=== PATIENT | female | born 1945 | race Caucasian/White ===

== ENCOUNTER 2016-07-13 11:31 | Outpatient (CLI) | payer MEDICARE, BC | END 2016-07-13 11:32 | disposition home or self-care (01) | DX: Z01.818 Encounter for other preprocedural examination (principal); C54.1 Malignant neoplasm of endometrium ==

== ENCOUNTER 2016-07-13 11:47 | Outpatient (CLI) | payer MEDICARE, BC | END 2016-07-13 11:48 | disposition home or self-care (01) | DX: Z01.818 Encounter for other preprocedural examination (principal); C54.1 Malignant neoplasm of endometrium ==

== ENCOUNTER 2017-08-27 08:33 | Emergency (ER) | payer MEDICARE, BC ==
[2017-08-27 08:47] VITALS: BP 173/89
--- NOTE | 2017-08-27 09:50 | ED Physician Documentation ---
PD HPI SKIN - Stated complaint Stated Complaint: ITCHY SPOTS - Chief complaint Chief Complaint: Heent - History obtained from History obtained from: Patient - History of Present Illness Timing - onset: How many days ago (3) Timing - duration: Days (3) Timing - details: Gradual onset, Still present Location: Bodywide Quality / character: Itchy, Discolored, Raised, Crusted Improved by: Benadryl Contributing factors: Other (lots of stress with a move and health issues.) Similar symptoms before: Diagnosis (impetigo) Recently seen: Not recently seen - Additional information Additional information: 72-year-old female with a history of hypertension has developed a rash on her body around her ankles and over her back and trunk and this is developed some significant itching with swelling and crusting of the areas as well. She has had something like this similar back in 2013. This was thought at that time to be related to an exercise mat that she was using and she continues to go to the [employer] and is worried about their metastases there. She indicates that she had good relief of her symptoms with the treatment given previously. 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 08/27/17 - Allergies Allergies/Adverse Reactions: Allergies Allergy/AdvReac Type Severity Reaction Status Date / Time No Known Drug Allergies Allergy Verified 08/27/17 08:47 - Social History Does the pt smoke?: No Smoking Status: Never smoker Does the pt drink ETOH?: Yes Does the pt have substance abuse?: No - Immunizations Immunizations are current?: Yes PD ED PE NORMAL - Vitals Vital signs reviewed: Yes (hypertensive ) - General General: Alert and oriented X 3, No acute distress, Well developed/nourished - HEENT HEENT: Atraumatic, PERRL, EOMI - Neck Neck: Supple, no meningeal sign - Respiratory Respiratory: No respiratory distress - Derm Derm: Normal color, Warm and dry, Other (There are multiple areas of plaque like pustules with honey crusting over the lower back and lower abdomen as well as the lower extremities. There is some additional more diffuse areas over the upper back and the back of the neck.) - Extremities Extremities: No deformity, No edema - Neuro Neuro: No motor deficit, No sensory deficit Eye Opening: Spontaneous Motor: Obeys Commands Verbal: Oriented GCS Score: 15 - Psych Psych: Normal mood, Normal affect Results - Vitals Vitals: Vital Signs - 24 hr 08/27/17 08:45 Heart Rate 69 Respiratory 18 Rate Blood Pressure 173/89 H O2 Saturation 100 Oxygen O2 Source Room air PD MEDICAL DECISION MAKING - ED course Complexity details: reviewed old records, considered differential, d/w patient ED course: 72-year-old female with a rash for the last 3 days this progressed and is spreading appears to have impetigo on examination. She has had previous good result with the prior treatment and we will treat her again. Departure - Departure Disposition: 01 Home, Self Care Clinical Impression: Impetigo Condition: Stable Instructions: Impetigo Follow-Up: Nilsa Bradley ARNP [Primary Care Provider] - Prescriptions: Azithromycin [Zithromax] 250 mg PO DAILY #6 tablet Mupirocin Calcium [Bactroban] 1 gm TP BID #30 cream..g.
== END 2017-08-27 10:02 | disposition home or self-care (01) ==
LOC: ED 08:33
DX: L01.00 Impetigo, unspecified (principal); I10 Essential (primary) hypertension
CPT/HCPCS: 99283

== ENCOUNTER 2020-02-16 11:42 | Outpatient (CLI) | payer MEDICARE, BC ==
[2020-02-16] MEDS ORDERED: IOVERSOL 320 100 ML VIAL IVP ONE ×2 (12:03→13:11)
[2020-02-16] MEDS ORDERED: IOVERSOL 320 50 ML VIAL ONE (12:03)
[2020-02-16 12:47] LABS: CREATININE 0.9 mg/dL (0.4-1.0)
[2020-02-16] MEDS ORDERED: IOVERSOL 320 50 ML VIAL PO ONE (13:12)
--- NOTE | 2020-02-16 15:44 | CT Report ---
PROCEDURE: Abdomen/Pelvis W INDICATIONS: RLQ ABD PAIN CONTRAST: IV CONTRAST: Optiray 320 ml: 100 PO CONTRAST: Optiray 320 ml50 TECHNIQUE: After the administration of intravenous contrast, 5 mm thick sections acquired from the diaphragms to the symphysis. 5 mm thick coronal and sagittal reformats were acquired. For radiation dose reducti on, the following was used: automated exposure control, adjustment of mA and/or kV according to chika ent size. COMPARISON: None. FINDINGS: Image quality: Excellent. ABDOMEN: Lung bases: Lung bases are clear. Heart size is normal. Solid organs: Liver and spleen are normal in size and enhancement. Gallbladder is unremarkable Kirby iary system is non dilated. Pancreas enhances normally. No adrenal nodules. Kidneys demonstrate no rmal size and enhancement, without hydronephrosis. Low-density cystic lesions are present bilaterall y within the kidneys. Peritoneum and bowel: Bowel loops demonstrate normal wall thickness and caliber. The appendix is thi n-walled and gas-filled. No free fluid or air. Nodes and vessels: No retroperitoneal or mesenteric adenopathy by size criteria. Aorta and inferior vena cava are normal in size. Scattered atheromatous calcifications are present throughout the abdo cierra aorta. Miscellaneous: No ventral hernias. PELVIS: Genitourinary: Bladder wall thickness is normal. Miscellaneous: No inguinal hernias or adenopathy. Bones: No suspicious bony lesions. No vertebral body compression fractures. IMPRESSION: 1. No acute intra-abdominal findings. Normal appendix. 2. Bilateral renal cysts. 3. Aortic atherosclerosis. Reviewed by: Malka Toro MD on 02/16/2020 3:43 PM PDT Approved by: Malka Toro MD on 02/16/2020 3:43 PM PDT Station ID: [id number]
== END 2020-02-16 11:43 | disposition home or self-care (01) ==
LOC: LAB 11:42
PROVIDERS: ATTEND Neurological Surgery
DX: R10.31 Right lower quadrant pain (principal); N28.1 Cyst of kidney, acquired; I70.0 Atherosclerosis of aorta
CPT/HCPCS: 36415; 74177; 82565; Q9967

== ENCOUNTER 2021-05-27 10:40 | Outpatient (CLI) | payer MEDICARE, BC ==
[2021-05-27 10:50] LABS: BASOPHILS % (AUTO) 0.8 %; EOSINOPHILS # (AUTO) 0.1 10^3/uL (0.0-0.7); EOSINOPHILS % (AUTO) 1.6 %; HCT - HEMATOCRIT 41.7 % (37.0-47.0); HGB - HEMOGLOBIN 13.9 g/dL (12.0-16.0); LYMPHOCYTES # (AUTO) 1.4 10^3/uL (1.5-3.5); LYMPHOCYTES % (AUTO) 28.1 %; MEAN CORPUSCULAR HEMOGLOBIN 32.2 pg (27.0-31.0); MEAN CORPUSCULAR HGB CONC 33.3 g/dL (32.0-36.0); MEAN CORPUSCULAR VOLUME 96.5 fL (81.0-99.0); MEAN PLATELET VOLUME 9.2 fL (7.9-10.8); MONOCYTES # (AUTO) 0.5 10^3/uL (0.0-1.0); MONOCYTES % (AUTO) 9.9 %; NEUTROPHILS # (AUTO) 2.9 10^3/uL (1.5-6.6); NEUTROPHILS % (AUTO) 59.4 %; PLT - PLATELET COUNT 268 10^3/uL (130-450); RED BLOOD COUNT 4.32 10^6/uL (4.20-5.40); RED CELL DISTRIBUTION WIDTH 13.6 % (12.0-15.0); WHITE BLOOD COUNT 4.9 x10^3/uL (4.8-10.8)
[2021-05-27] MEDS ORDERED: IOVERSOL 320 100 ML VIAL IVP ONE ×2 (11:09→13:23)
[2021-05-27] MEDS ORDERED: IOPAMIDOL-300 50 ML VIAL ONE (11:09)
[2021-05-27 11:10] LABS: CREATININE 0.7 mg/dL (0.4-1.0); GFR - MDRD 82 (>89)
[2021-05-27 11:11] LABS: CRP - C-REACTIVE PROTEIN < 1.0 mg/dL (0-1.0)
[2021-05-27] MEDS ORDERED: IOPAMIDOL-300 50 ML VIAL PO ONE (13:23)
--- NOTE | 2021-05-27 16:58 | CT Report ---
PROCEDURE: CHEST W INDICATIONS: ENDOMETRIAL CA CONTRAST: IV CONTRAST: Optiray 320 ml: 100 PO CONTRAST: Isovue 300 ml50 TECHNIQUE: After the administration of intravenous contrast, 1 mm axial images were acquired from the pulmonary apices through the posterior costophrenic angles. Axial 5 mm soft tissue kernel reconstructions were performed as well as 8 mm axial MIP and coronal and sagittal 5 mm reformations. For radiation dose reduction, the following was used: automated exposure control, adjustment of mA and/or kV according to patient size. COMPARISON: February 16, 2020. FINDINGS: CT CHEST: Thyroid: Homogeneous. Vasculature: The thoracic aorta and arch vasculature have a normal contrasted appearance and are norm al size and contour. No evidence for dissection. Heart: No cardiomegaly or significant pericardial effusion. Mediastinum: No pathologic lymph node enlargement by size criteria. Lung/pleura: Biapical pleural thickening/scarring. No pleural effusion, consolidation, or pneumothora x. Tracheobronchial tree: Patent. Bones: No significant abnormality. A 1 cm lucency is again seen in the right T11 pedicle, favored to represent a hemangioma. Chest wall: The chest wall and axilla are within normal limits. IMPRESSION: 1.No significant abnormality. Reviewed by: Shane Colorado MD on 05/27/2021 4:57 PM PST Approved by: Shane Colorado MD on 05/27/2021 4:57 PM PST Station ID: [id number]
--- NOTE | 2021-05-27 17:06 | CT Report ---
PROCEDURE: Abdomen/Pelvis W INDICATIONS: ENDOMETRIAL CA CONTRAST: IV CONTRAST: Optiray 320 ml: 100 PO CONTRAST: Isovue 300 ml50 TECHNIQUE: After the administration of oral and intravenous contrast, 5 mm thick sections acquired from the diap hragms to the symphysis. 5 mm thick coronal and sagittal reformats were acquired. For radiation dos e reduction, the following was used: automated exposure control, adjustment of mA and/or kV accordin g to patient size. COMPARISON: February 16, 2020. FINDINGS: Gallbladder: The gallbladder is distended with a smooth thin wall. Biliary tree: Minimal intrahepatic biliary duct dilatation. Liver: The liver demonstrates size and contour. Redemonstrated 1 cm, faint contrast enhancing lesion in the right hepatic lobe (CT chest series: 2-52), best appreciated on the arterial phase. Spleen: Normal enhancement, size and morphology is seen. Pancreas: No contour deforming mass or inflammatory change. Adrenals: Normal size without masses. Kidneys/ureters: Normal size and morphology. No solid masses or hydronephrosis. Bilateral cortical an d parapelvic hypoattenuating lesions are seen, most consistent with cysts. Vasculature: No evidence of aneurysm or other significant vascular pathology. Lymphatic system: No pathologic enlargement by size criteria. GI/mesentery: No evidence of intestinal obstruction. Normal appearance of the appendix. Peritoneum/Retroperitoneum: No free intraperitoneal gas or large collection. Urinary bladder: The urinary bladder is distended with a smooth thin wall. Pelvic organs: No significant abnormality. Bones/soft tissues: Multifocal degenerative change. Slightly diffuse increased lucency of the L5 vert ebral body with preservation of the cortex. IMPRESSION: 1.No significant interval change. 2.1 cm contrast enhancing lesion in the right hepatic lobe, which is incompletely characterized. Cons ider MR for further characterization. 3.Slight diffuse increased lucency of the L5 vertebral body, which is nonspecific but may reflect pos t radiation change. Reviewed by: Shane Colorado MD on 05/27/2021 5:05 PM PST Approved by: Shane Colorado MD on 05/27/2021 5:05 PM PST Station ID: [id number]
== END 2021-05-27 10:41 | disposition home or self-care (01) ==
LOC: LAB 10:40
PROVIDERS: ATTEND Internal Medicine
DX: C55 Malignant neoplasm of uterus, part unspecified (principal); R51.9 Headache, unspecified; R93.2 Abnormal findings on diagnostic imaging of liver and biliary tract; R93.7 Abnormal findings on diagnostic imaging of other parts of musculoskeletal system
CPT/HCPCS: 36415; 71260; 74177; 82565; 85025; 85651; 86140; Q9967

== ENCOUNTER 2022-01-25 10:33 | Outpatient (CLI) | payer MEDICARE, BC ==
[2022-01-25] MEDS ORDERED: DIATRIZOATE MEGLU/DIATRIZO SOD 30 ML BOTTLE PO ONE ×2 (10:52→18:18)
[2022-01-25 11:01] LABS: CREATININE 0.6 mg/dL (0.4-1.0)
--- NOTE | 2022-01-25 21:37 | CT Report ---
PROCEDURE: CHEST W INDICATIONS: HX OF ENDOMETRIAL CA, CHRONIC RUQ PAIN CONTRAST: IV CONTRAST: Optiray 320 ml: 100 PO CONTRAST: Optiray 320 ml50 TECHNIQUE: After the administration of intravenous contrast, 1 mm axial images were acquired from the pulmonary apices through the posterior costophrenic angles. Axial 5 mm soft tissue kernel reconstructions were performed as well as 8 mm axial MIP and coronal and sagittal 5 mm reformations. For radiation dose reduction, the following was used: automated exposure control, adjustment of mA and/or kV according to patient size. COMPARISON: 05/27/2021. FINDINGS: Image quality: Excellent. Lungs and pleura: Biapical scarring is seen. Scattered atelectasis in periphery of bilateral lung fi elds are seen. No suspicious pulmonary nodule or mass. No acute air space opacities. No pleural effu sions or pneumothorax. Central and peripheral airways are patent and normal in caliber. Mediastinum: Heart size is normal. No pericardial effusion. No mediastinal or hilar adenopathy by size criteria. Thoracic aorta and central pulmonary arteries are normal in size. Esophagus is tessa l in caliber. No hiatal hernia. Bones and chest wall: No suspicious bony lesions. Benign-appearing radiolucent area involving right T11 pedicle is again seen and unchanged and is most consistent with benign hemangioma. No vertebral body compression fractures. No axillary or supraclavicular adenopathy by size criteria. The thyroid is normal in size and there are no incidental findings.. Abdomen: Visualized upper abdominal solid organs appear normal. Upper abdominal bowel loops are nor mal in caliber. Bilateral renal cysts are seen. IMPRESSION: 1. No evidence of metastatic disease in the chest. 2. Scattered atelectasis in bilateral lung m[place]ur and biapical scarring. No suspicious pulmonary nodu le, focal infiltrate, pleural effusion or pneumothorax. 3. No mediastinal or hilar lymphadenopathy. CLINICAL RECOMMENDATION STATEMENTS: In patients <35 years with an ITN detected on CT, MRI, or extrathyroidal ultrasound, the Committee re commends further evaluation with dedicated thyroid ultrasound if the nodule is "e1 cm and has no susp icious imaging features, and if the patient has normal life expectancy. In patients "e35 years with an ITN detected on CT, MRI, or extrathyroidal ultrasound, the Committee r ecommends further evaluation with dedicated thyroid ultrasound if the nodule is "e1.5 cm and has no s uspicious imaging features, and if the patient has normal life expectancy. (ACR, 2014) Reviewed by: Jenaro Malhotra MD on 01/25/2022 9:36 PM PDT Approved by: Jenaro Malhotra MD on 01/25/2022 9:36 PM PDT Station ID: [id number]
--- NOTE | 2022-01-25 22:10 | CT Report ---
PROCEDURE: Abdomen/Pelvis W INDICATIONS: HX OF ENDOMETRIAL CA, CHRONIC RUQ PAIN CONTRAST: IV CONTRAST: Optiray 320 ml: 100 PO CONTRAST: Optiray 320 ml50 TECHNIQUE: After the administration of IV and oral contrast, 5 mm thick sections acquired from the diaphragms to the symphysis. 5 mm thick coronal and sagittal reformats were acquired. For radiation dose reducti on, the following was used: automated exposure control, adjustment of mA and/or kV according to chika ent size. COMPARISON: 05/27/2021, 02/16/2020, CT of the chest on 01/25/2022 FINDINGS: Image quality: Excellent. ABDOMEN: Lung bases: Lung bases are clear. Heart size is normal. Solid organs: Liver and spleen are normal in size. Previous CT chest finding of focal 1 cm area of h yperenhancement involving anterior right hepatic dome is again seen series 3 image 11 unchanged from prior study. No discrete splenic lesion is seen. Gallbladder is within normal limits. Biliary system is non dilated. Pancreas enhances normally. No adrenal nodules. Kidneys demonstrate normal size a nd enhancement, without hydronephrosis. Bilateral renal cysts are again seen unchanged in size and a ppearance from prior study. Peritoneum and bowel: Bowel loops demonstrate normal wall thickness and caliber. No free fluid or a ir. Nodes and vessels: No retroperitoneal or mesenteric adenopathy by size criteria. Aorta and inferior vena cava are normal in size. Miscellaneous: No ventral hernias. PELVIS: Genitourinary: Bladder wall thickness is normal. Miscellaneous: No inguinal hernias or adenopathy. Bones: No suspicious bony lesions. Increased radiolucency and L5 vertebral body and bony pelvis is seen with preservation of the cortex. No vertebral body compression fractures. IMPRESSION: 1. No significant changes from 05/27/2021 study. 2. Stable 1 cm hypodense structure in right hepatic dome unchanged from prior study. Metastatic liver lesion cannot be excluded. Consider MRI of abdomen for further evaluation. 3. No abdominal or pelvic lymphadenopathy. 4. Increased radiolucency in bony pelvis and L5 vertebral body which may represent postradiation lamas ges versus areas of osteopenia. No pathologic fracture. No other suspicious bony lesion. Reviewed by: Jenaro Malhotra MD on 01/25/2022 10:09 PM PDT Approved by: Jenaro Malhotra MD on 01/25/2022 10:09 PM PDT Station ID: [id number]
== END 2022-01-25 10:34 | disposition home or self-care (01) ==
LOC: LAB 10:33
PROVIDERS: ATTEND Physician Assistant Medical
DX: R10.11 Right upper quadrant pain (principal); G89.29 Other chronic pain; J98.11 Atelectasis; R93.2 Abnormal findings on diagnostic imaging of liver and biliary tract; R93.7 Abnormal findings on diagnostic imaging of other parts of musculoskeletal system; Z85.42 Personal history of malignant neoplasm of other parts of uterus
CPT/HCPCS: 36415; 71260; 74177; 82565; Q9963; Q9967

== ENCOUNTER 2022-12-14 14:09 | Emergency (ER) | payer MEDICARE, BC ==
--- NOTE | 2022-12-14 15:19 | ED Physician Documentation ---
PD HPI SKIN - Stated complaint Stated Complaint: BILAT LEG BUMPS - Chief complaint Chief Complaint: Ext Problem - History obtained from History obtained from: Patient - History of Present Illness Timing - onset: How many days ago (5) Timing - duration: Days (5) Timing - details: Gradual onset, Still present Location: Abdomen, LUE, RLE Quality / character: Itchy, Discolored, Raised, Crusted, Swelling, Draining Improved by: Steroid cream Associated symptoms: No: Fever, Myalgias, Joint pain, Headache, Facial swelling, Dyspnea, Abd pain, N/V/D, Urinary sx Contributing factors: Other (works in the garden) Similar symptoms before: Diagnosis (impetigo, arthropods) Recently seen: Clinic ([facility]) - Additional information Additional information: Bianca Victoria is a 77-year-old female who has developed some small red plaques over her lower extremities her lower abdomen and her left hip. She has had this happen to her previously in the summer a number of times. I have reviewed the patient's record and found that she has been treated for impetigo previously twice. The patient does not have a good recollection of treatments. She does state that she went to a flexographic press plate setter yesterday and they did a biopsy. When I further questioned her the biopsy was a swab of the wound. She indicates that she has been told previously that she had arthropods when they did an excision biopsy. She has intense itching and has been prescribed clobetasol. 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 - Present Medications Home Medications: Ambulatory Orders Medication Instructions Recorded Confirmed Atorvastatin Calcium 10 mg PO DAILY 08/27/17 12/14/22 Azithromycin [Zithromax] 250 mg PO DAILY #6 tablet 12/14/22 Mupirocin 2% Oint [Bactroban 2% 1 applic TOP BID #50 gm 12/14/22 Oint] - Allergies Allergies/Adverse Reactions: Allergies Allergy/AdvReac Type Severity Reaction Status Date / Time No Known Drug Allergies Allergy Verified 12/14/22 14:48 - Social History Does the pt smoke?: No Smoking Status: Never smoker Does the pt drink ETOH?: Yes Does the pt have substance abuse?: No - Immunizations Immunizations are current?: Yes PD ED PE NORMAL - Vitals Vital signs reviewed: Yes (hypertensive) - General General: Alert and oriented X 3, No acute distress, Well developed/nourished - HEENT HEENT: Atraumatic, PERRL, EOMI - Respiratory Respiratory: No respiratory distress - Derm Derm: Normal color, Warm and dry, Other (There are multiple areas of erythematous plaque with surrounding inflammation and honey crusting. Some of these have appearance of urticaria with surrounding erythema. There is no mass and no abscess. There are areas to the left lateral hip to both calves to the periumbilical area.) - Extremities Extremities: No deformity, No edema - Neuro Neuro: Alert and oriented X 3, computer technologist 2-12 intact, No motor deficit, No sensory deficit, Normal speech Eye Opening: Spontaneous Motor: Obeys Commands Verbal: Oriented GCS Score: 15 - Psych Psych: Normal mood, Normal affect Results - Vitals Vitals: Vital Signs - 24 hr 12/14/22 12/14/22 14:36 16:13 Temperature 36.8 C Heart Rate 85 86 Respiratory 19 14 Rate Blood Pressure 155/85 H 144/65 H O2 Saturation 97 100 Oxygen O2 Source Room air PD Medical Decision Making - ED course Complexity details: considered differential, d/w patient ED course: 77-year-old female with recurrent erythematous plaques with honey crusting has successfully been treated for impetigo previously she is a poor historian and unable to tell me which of these episodes previously has had which treatment. She describes a number of prior treatments and diagnoses. I considered the possibility of scabies and found the honey crusting and the appearance of the plaques to be more consistent with impetigo. We have elected to empirically treat for impetigo. Departure - Departure Disposition: 01 Home, Self Care Clinical Impression: Impetigo Condition: Stable Instructions: Impetigo Follow-Up: ОЛЬГА OWENS DO [Primary Care Provider] - Prescriptions: Mupirocin 2% Oint [Bactroban 2% Oint] 1 applic TOP BID #50 gm Azithromycin [Zithromax] 250 mg PO DAILY #6 tablet Comments: Bianca, today this looks like you have an infection in the skin and the recommendation is to apply the mupirocin ointment to the areas affected twice per day and expect improvement. There is 1 area on your heel that looks like there may be some deeper infection in the skin and I have E scribed some oral antibiotic as well. These medications [facility] E [facility] to [facility] in [place]. Discharge Date/Time: 12/14/22 16:27
[2022-12-14 16:17] VITALS: BP 144/65; O2SAT 100
== END 2022-12-14 16:27 | disposition home or self-care (01) ==
LOC: ED 14:09
DX: L01.00 Impetigo, unspecified (principal)
CPT/HCPCS: 99282; 99283

== ENCOUNTER 2023-04-11 10:31 | Outpatient (CLI) | payer MEDICARE, BC ==
--- NOTE | 2023-04-11 11:50 | DEXA Report ---
PROCEDURE: Dexa Spine and/or Hip INDICATIONS: POST MENOPAUSAL TECHNIQUE: Dual energy x-ray absorptiometry (DXA) was performed on a [employer] System. Regions measur ed are the AP Spine, femoral neck, and if needed forearm. COMPARISON: None FINDINGS: Lumbar Spine: Bone Mineral Density 1.04 g/cm/cm,T score -1.2. Left Femoral Neck: Bone Mineral Density 0.81 g/cm/cm, T score -1.6. Left Hip: Bone Mineral Density 0.84 g/cm/cm,T score -1.3. (T score greater or equal to -1.0: NORMAL) (T score from -1.1 to -2.4: OSTEOPENIA) (T score less than or equal to -2.5 to: OSTEOPOROSIS) Impression: By WHO criteria, this patient has low bone density (osteopenia). Patients with diagnosis of osteoporosis or osteopenia should have regular bone mineral density assess ment. For those eligible for Medicare, routine testing is allowed once every 2 years. Testing frequ ency can be increased for patients who have rapidly progressing disease or for those who are receivin g medical therapy to restore bone mass. Reviewed by: Benson Cervantes MD on 04/11/2023 11:48 AM PST Approved by: Benson Cervantes MD on 04/11/2023 11:48 AM PST Station ID: [id number]
== END 2023-04-11 10:32 | disposition home or self-care (01) ==
LOC: DI 10:31
PROVIDERS: ATTEND Nurse Practitioner Family
DX: Z13.820 Encounter for screening for osteoporosis (principal); M85.89 Other specified disorders of bone density and structure, multiple sites; Z78.0 Asymptomatic menopausal state

== ENCOUNTER 2023-05-25 10:29 | Outpatient (CLI) | payer MEDICARE, BC ==
--- NOTE | 2023-05-25 13:28 | XRAY Report ---
PROCEDURE: Thoracic Spine 2V INDICATIONS: BACK PAIN TECHNIQUE: 2 views of the thoracic spine were acquired. COMPARISON: None. FINDINGS: Bones: No fractures or dislocations. No suspicious bony lesions. 12 pairs of ribs are noted, and a ppear intact where visualized. Levocurvature of the lower thoracic spine. Diffusely decreased osseou s position. Multilevel degenerative changes with disc height loss and degenerative endplate changes. Soft tissues: No paravertebral stripe thickening. IMPRESSION: No vertebral body compression deformities are seen. Diffusely decreased osseous mineralization. Mild multilevel degenerative changes of the thoracic spine. Reviewed by: Oscar Miller MD on 05/25/2023 1:27 PM PST Approved by: Oscar Miller MD on 05/25/2023 1:27 PM PST Station ID: [id number]
--- NOTE | 2023-05-25 13:30 | XRAY Report ---
PROCEDURE: Knee 3V RT INDICATIONS: KNEE PAIN TECHNIQUE: 3 views of the knee(s) were acquired. COMPARISON: None. FINDINGS: Bones: No fractures or dislocations. Tricompartmental osteoarthritic changes with osteophytosis and moderate to severe medial joint space narrowing. Severe lateral patellofemoral joint space narrowing with subchondral sclerosis and cystic changes. No suspicious bony lesions. Soft tissues: No knee joint effusion. No suspicious soft tissue calcifications or masses. IMPRESSION: 1.No acute bony abnormality. 2.Severe osteoarthritic changes of the right knee, most pronounced within the medial tibiofemoral and lateral patellofemoral compartments. Reviewed by: Oscar Miller MD on 05/25/2023 1:28 PM PST Approved by: Oscar Miller MD on 05/25/2023 1:28 PM PST Station ID: [id number]
== END 2023-05-25 10:30 | disposition home or self-care (01) ==
LOC: DI 10:29
PROVIDERS: ATTEND Nurse Practitioner Family
DX: M81.0 Age-related osteoporosis without current pathological fracture (principal); M17.11 Unilateral primary osteoarthritis, right knee

== ENCOUNTER 2023-08-23 14:34 | Outpatient (CLI) | payer MEDICARE, BC ==
--- NOTE | 2023-08-24 10:57 | Mammography Report ---
BILATERAL DIGITAL SCREENING MAMMOGRAM 3D/2D: 08/23/2023 CLINICAL: Routine screening. Comparison is made to exams dated: 06/22/2022 mammogram, 02/05/2020 mammogram, 01/17/2018 mammogram, an d 09/28/2016 mammogram - [facility]. Both breasts are heterogeneously dense, which may obscure small masses (category c / 51-75% glandular tissue). There is a focal asymmetry in the right breast at 11 o'clock posterior depth. No other significant masses, calcifications, or other findings are seen in either breast. IMPRESSION: INCOMPLETE: NEEDS ADDITIONAL IMAGING EVALUATION The focal asymmetry in the right breast is indeterminate. Additional views with possible ultrasound are recommended. Based on the Tyrer Cuzick model (a risk assessment model) the patient's lifetime risk is 5.5% and her 10 year risk is 0.0%. According to the ACR, ACS, and NCCN guidelines, an annual breast MRI exam stacia g with mammogram is recommended if the patient's lifetime risk is 20% or greater. This exam was interpreted at Station ID: [id number]. NOTE: For mammograms, a report in lay terms will be sent to the patient. Approximately 15% of breast malignancies will not be visualized mammographically. In the management of a palpable breast mass, a negative mammogram must not discourage biopsy of a clinically suspicious lesion. Electronically Signed By: Malka gottlieb/brown:08/23/2023 16:24:35 ACR BI-RADS Category 0: Incomplete 3340F PARENCHYMAL PATTERN: (D) - The breast(s) demonstrate(s) heterogeneously dense fibroglandular parmelissa youngblood. BI-RADS CATEGORY: (0) - 0 Mammo and US [id number] Immediate follow-up LATERALITY: (B)
== END 2023-08-23 14:35 | disposition home or self-care (01) ==
LOC: DI 14:34
DX: Z12.31 Encounter for screening mammogram for malignant neoplasm of breast (principal); R92.8 Other abnormal and inconclusive findings on diagnostic imaging of breast; R92.333 Mammographic heterogeneous density, bilateral breasts

== ENCOUNTER 2023-09-21 08:16 | Outpatient (CLI) | payer MEDICARE, BC ==
[2023-09-21 14:39] LABS: BASOPHILS % (AUTO) 0.6 %; EOSINOPHILS # (AUTO) 0.1 10^3/uL (0.0-0.7); EOSINOPHILS % (AUTO) 1.1 %; HCT - HEMATOCRIT 41.9 % (37.0-47.0); HGB - HEMOGLOBIN 13.2 g/dL (12.0-16.0); LYMPHOCYTES # (AUTO) 1.5 10^3/uL (1.5-3.5); LYMPHOCYTES % (AUTO) 31.3 %; MEAN CORPUSCULAR HEMOGLOBIN 31.1 pg (27.0-31.0); MEAN CORPUSCULAR HGB CONC 31.5 g/dL (32.0-36.0); MEAN CORPUSCULAR VOLUME 98.6 fL (81.0-99.0); MEAN PLATELET VOLUME 10.6 fL (7.9-10.8); MONOCYTES # (AUTO) 0.4 10^3/uL (0.0-1.0); MONOCYTES % (AUTO) 9.2 %; NEUTROPHILS # (AUTO) 2.7 10^3/uL (1.5-6.6); NEUTROPHILS % (AUTO) 57.6 %; PLT - PLATELET COUNT 257 10^3/uL (130-450); RED BLOOD COUNT 4.25 10^6/uL (4.20-5.40); RED CELL DISTRIBUTION WIDTH 13.7 % (12.0-15.0); WHITE BLOOD COUNT 4.7 x10^3/uL (4.8-10.8)
[2023-09-21 15:24] LABS: ALBUMIN 4.2 g/dL (3.2-5.5); ALBUMIN/GLOBULIN RATIO 1.6 (1.0-2.2); ALKALINE PHOSPHATASE 71 IU/L (42-121); ALT ALANINE AMINOTRANSFERASE 15 IU/L (10-60); AST ASPARTATE AMINOTRANSFERASE 22 IU/L (10-42); BILIRUBIN,TOTAL 0.8 mg/dL (0.2-1.0); BUN - BLOOD UREA NITROGEN 13 mg/dL (6-20); CALCIUM 9.4 mg/dL (8.5-10.3); CARBON DIOXIDE - CO2 29 mmol/L (21-32); CHLORIDE 106 mmol/L (101-111); CHOLESTEROL 150 mg/dL; CREATININE 0.7 mg/dL (0.6-1.3); GFR - MDRD 81 (>89); GLUCOSE 97 mg/dL (74-104); HDL CHOLESTEROL 50 mg/dL; LDL CHOLESTEROL,CALCULATED 87 mg/dL; LDL/HDL RATIO 1.7 (<4.4); POTASSIUM 4.1 mmol/L (3.5-4.5); SODIUM 141 mmol/L (135-145); TOTAL PROTEIN 6.8 g/dL (6.4-8.9); TRIGLYCERIDES 63 mg/dL (48-352); VLDL CHOLESTEROL 13 mg/dL
[2023-09-21 15:49] LABS: THYROID STIMULATING HORMONE 2.26 uIU/mL (0.34-5.60)
== END 2023-09-21 08:17 | disposition home or self-care (01) ==
LOC: LAB.S 08:16
PROVIDERS: ATTEND Internal Medicine
DX: E78.5 Hyperlipidemia, unspecified (principal); Z13.9 Encounter for screening, unspecified
CPT/HCPCS: 36415; 80053; 80061; 83721; 84443; 85025

== ENCOUNTER 2023-10-04 10:46 | Outpatient (CLI) | payer MEDICARE, BC ==
--- NOTE | 2023-10-05 09:37 | Ultrasound Report ---
LIMITED ULTRASOUND OF RIGHT BREAST: 10/04/2023 CLINICAL: Patient returns today to evaluate a focal asymmetry in the right breast. Comparison is made to exams dated: 10/04/2023 mammogram, 08/23/[facility], 06/22/2022 mammogram, 02/05/2020 mammogram, 01/17/2018 mammogram, and 09/28/2016 mammogram - [facility]. Ultrasound of the right breast 5-7 o'clock region was performed. Morse scale images of the real-time examination were reviewed. No significant abnormalities were seen sonographically in the right breast. IMPRESSION: NEGATIVE There is no sonographic evidence of malignancy. There is no abnormality seen in the right breast to correspond with the mammography finding. Return to annual mammogram screening schedule is recommended. This exam was interpreted at Station ID: [id number]. Electronically Signed By: Benson Cervantes M.D. lc/:10/04/2023 11:47:42 letter sent: No_Letter Ultrasound BI-RADS: 1 Negative BI-RADS CATEGORY: (1) - 1 Mammogram [id number] return to screening LATERALITY: (B)
--- NOTE | 2023-10-05 09:37 | Mammography Report ---
UNILATERAL RIGHT DIGITAL DIAGNOSTIC MAMMOGRAM 3D/2D WITH SPOT COMPRESSION: 10/04/2023 CLINICAL: Patient returns today to evaluate a focal asymmetry in the right breast. Comparison is made to exams dated: 08/23/2023 mammogram - [facility], 06/22/2022 mammo gram, 02/05/2020 mammogram, 01/17/2018 mammogram, and 09/28/2016 mammogram - [facility]. The right breast is heterogeneously dense, which may obscure small masses (category c / 51-75% glandu lar tissue). There is a focal asymmetry in the right breast central to the nipple posterior depth. This is less p rominent. No other significant masses or calcifications are seen in the breast. IMPRESSION: INCOMPLETE: NEEDS ADDITIONAL IMAGING EVALUATION The focal asymmetry in the right breast is indeterminate. An ultrasound is recommended. On additional views today, this appears more inferior than suggested on screening study. Based on the Tyrer Cuzick model (a risk assessment model) the patient's lifetime risk is 5.5% and her 10 year risk is 0.0%. According to the ACR, ACS, and NCCN guidelines, an annual breast MRI exam stacia g with mammogram is recommended if the patient's lifetime risk is 20% or greater. This exam was interpreted at Station ID: [id number]. NOTE: For mammograms, a report in lay terms will be sent to the patient. Approximately 15% of breast malignancies will not be visualized mammographically. In the management of a palpable breast mass, a negative mammogram must not discourage biopsy of a clinically suspicious lesion. Electronically Signed By: Benson Cervantes M.D. lc/:10/04/2023 11:49:36 ACR BI-RADS Category 0: Incomplete 3340F PARENCHYMAL PATTERN: (D) - The breast(s) demonstrate(s) heterogeneously dense fibroglandular parenchy ma. BI-RADS CATEGORY: (0) - 0 Ultrasound [id number] Immediate follow-up LATERALITY: (B)
== END 2023-10-04 10:47 | disposition home or self-care (01) ==
LOC: DI 10:46
PROVIDERS: ATTEND Internal Medicine
DX: R92.8 Other abnormal and inconclusive findings on diagnostic imaging of breast (principal); R92.331 Mammographic heterogeneous density, right breast

== ENCOUNTER 2024-01-15 19:15 | Emergency (ER) | payer MEDICARE, BC ==
[2024-01-15 19:51] LABS: BASOPHILS # (AUTO) 0.1 10^3/uL (0.0-0.1); BASOPHILS % (AUTO) 0.5 %; EOSINOPHILS # (AUTO) 0.1 10^3/uL (0.0-0.7); EOSINOPHILS % (AUTO) 0.8 %; HCT - HEMATOCRIT 42.8 % (37.0-47.0); HGB - HEMOGLOBIN 13.9 g/dL (12.0-16.0); LYMPHOCYTES # (AUTO) 1.5 10^3/uL (1.5-3.5); LYMPHOCYTES % (AUTO) 13.8 %; MEAN CORPUSCULAR HEMOGLOBIN 31.2 pg (27.0-31.0); MEAN CORPUSCULAR HGB CONC 32.5 g/dL (32.0-36.0); MEAN PLATELET VOLUME 9.9 fL (7.9-10.8); MONOCYTES # (AUTO) 0.7 10^3/uL (0.0-1.0); MONOCYTES % (AUTO) 6.7 %; NEUTROPHILS # (AUTO) 8.4 10^3/uL (1.5-6.6); NEUTROPHILS % (AUTO) 77.9 %; PLT - PLATELET COUNT 314 10^3/uL (130-450); RED BLOOD COUNT 4.46 10^6/uL (4.20-5.40); WHITE BLOOD COUNT 10.8 x10^3/uL (4.8-10.8)
--- NOTE | 2024-01-15 20:02 | ED Physician Documentation ---
History of Present Illness - Stated complaint Stated Complaint: GI/CHEST PX - Chief complaint Chief Complaint: Abd Pain - History obtained from History obtained from: Patient - History of Present Illness Timing: Today Pain level max: 7 Pain level now: 7 - Additonal information Additional information: Patient is a 78-year-old female who presents to the emergency department complaint of generalized abdominal pain ongoing for the past 4 hours. She states that she felt like she was constipated, so took MiraLAX and had a bowel movement, however states she is still having abdominal pain approximately every 10 minutes. She states that she feels like it "takes her breath away". She is not having any significant chest pain, more just feels that the pain in the abdomen is affecting her chest. Nothing seems to make it better or worse. No diarrhea. No constipation. No blood in the stool. No urinary symptoms. No history of heart problems. No recent travel. No fevers. No chills. No recent antibiotics. No rhinorrhea, cough or congestion. Has not had similar symptoms previously. Had a hysterectomy many years ago. 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 - Present Medications Home Medications: Ambulatory Orders Medication Instructions Recorded Confirmed Atorvastatin Calcium 10 mg PO DAILY 08/27/17 12/14/22 Azithromycin [Zithromax] 250 mg PO DAILY #6 tablet 12/14/22 Mupirocin 2% Oint [Bactroban 2% 1 applic TOP BID #50 gm 12/14/22 Oint] Dicyclomine [Bentyl] 10 mg PO QID PRN #30 cap 01/15/24 HYDROcod/ACETAM 5/325 [[place] 5/325] 1 - 2 ea PO Q6H PRN #10 tablet 01/15/24 Ondansetron Odt [Zofran] 4 mg TL Q6H PRN #10 tablet 01/15/24 cephALEXin [Keflex] 500 mg PO Q6H #20 cap 01/15/24 - Allergies Allergies/Adverse Reactions: Allergies Allergy/AdvReac Type Severity Reaction Status Date / Time No Known Drug Allergies Allergy Verified 01/15/24 19:20 - Social History Does the pt smoke?: No Smoking Status: Never smoker Does the pt drink ETOH?: Yes Does the pt have substance abuse?: No - Immunizations Immunizations are current?: Yes - POLST Patient has POLST: No PD ED PE NORMAL - Vitals Vital signs reviewed: Yes - General General: Alert and oriented X 3, No acute distress - HEENT HEENT: Moist mucous membranes - Neck Neck: Supple, no meningeal sign - Cardiac Cardiac: RRR, Strong equal pulses - Respiratory Respiratory: No respiratory distress, Clear bilaterally - Abdomen Abdomen: Soft, Non distended, Other (Diffusely tender to palpation. No peritoneal signs) - Back Back: No CVA TTP, No spinal TTP - Derm Derm: Warm and dry - Extremities Extremities: No edema, No calf tenderness / cord - Neuro Neuro: Alert and oriented X 3 - Psych Psych: Normal mood, Normal affect Results - Vitals Vitals: Vital Signs - 24 hr 01/15/24 01/15/24 01/15/24 19:20 19:47 21:25 Temperature 35.8 C L Heart Rate 74 72 61 Respiratory 20 27 H 18 Rate Blood Pressure 160/94 H 160/100 H 139/69 H O2 Saturation 99 97 96 Oxygen O2 Source Room air - EKG (time done) 1923 EKG releavant findings:: EKG personally interpreted by author of this note. Relevant findings are: Rate: Rate (enter#) (72) Rhythm: NSR [place]: Normal Intervals: Normal MT QRS: Normal Ischemia: T wave inversion (v4-6) - Labs Labs: Microbiology 01/15/24 21:10 Urine Culture - Preliminary Urine,Random CULTURE IN PROGRESS. RESULTS TO FOLLOW. Laboratory Tests 01/15/24 01/15/24 01/15/24 19:44 19:44 20:40 WBC 10.8 RBC 4.46 Hgb 13.9 Hct 42.8 MCV 96.0 MCH 31.2 H MCHC 32.5 RDW 14.0 Plt Count 314 MPV 9.9 Neut # (Auto) 8.4 H Lymph # (Auto) 1.5 [place] # (Auto) 0.7 Eos # (Auto) 0.1 Baso # (Auto) 0.1 Absolute Nucleated RBC 0.00 Nucleated RBC % 0.0 Sodium 139 Potassium 3.7 Chloride 102 Carbon Dioxide 30 Anion Gap 7.0 BUN 11 Creatinine 0.6 Estimated GFR (MDRD) 97 Glucose 131 H Calcium 9.9 Total Bilirubin 0.5 AST 20 ALT 16 Alkaline Phosphatase 86 Troponin I High Sens 3.2 Total Protein 7.6 Albumin 4.5 Globulin 3.1 Albumin/Globulin Ratio 1.5 Lipase 20 Urine Color Urine Clarity Urine pH Ur Specific [place] Urine Protein Urine Glucose (UA) Urine Ketones Urine Occult Blood Urine Nitrite Urine Bilirubin Urine Urobilinogen Ur Leukocyte Esterase Urine RBC Urine WBC Ur Squamous Epith Cells Urine Bacteria Ur Microscopic Review Urine Culture Comments 01/15/24 21:10 WBC RBC Hgb Hct MCV MCH MCHC RDW Plt Count MPV Neut # (Auto) Lymph # (Auto) [place] # (Auto) Eos # (Auto) Baso # (Auto) Absolute Nucleated RBC Nucleated RBC % Sodium Potassium Chloride Carbon Dioxide Anion Gap BUN Creatinine Estimated GFR (MDRD) Glucose Calcium Total Bilirubin AST ALT Alkaline Phosphatase Troponin I High Sens Total Protein Albumin Globulin Albumin/Globulin Ratio Lipase Urine Color YELLOW Urine Clarity CLEAR Urine pH 8.5 H Ur Specific [place] 1.010 Urine Protein TRACE Urine Glucose (UA) NEGATIVE Urine Ketones TRACE Urine Occult Blood NEGATIVE Urine Nitrite NEGATIVE Urine Bilirubin NEGATIVE Urine Urobilinogen 0.2 (NORMAL) Ur Leukocyte Esterase SMALL H Urine RBC 0-5 Urine WBC >25 H Ur Squamous Epith Cells RARE Squamous Urine Bacteria Rare Ur Microscopic Review INDICATED Urine Culture Comments INDICATED - Rads (name of study) CT abdomen pelvis Relevant Findings:: Final report received, See rad report cxr Relevant Findings:: Final report received, See rad report PD Medical Decision Making - ED course Complexity details: reviewed results, re-evaluated patient, considered differential, d/w patient ED course: 78-year-old female, very well-appearing, nontoxic. Given pain medication, pain resolved in the emergency department. CT scan consistent with an enteritis, likely viral. She did have some atypical sounding chest pain, but no acute ischemic changes on EKG. Negative high sensitive troponin. Tolerating p.o. without difficulty here. Will place on pain medication for home as she is continuing to have abdominal cramping. Will trial on Bentyl as well. Abdomen is soft, mildly tender on serial examination. No peritoneal signs. Patient counseled regarding signs and symptoms for which I believe and urgent re- evaluation would be necessary. Patient with good understanding of and agreement to plan and is comfortable going home at this time This document was made in part using voice recognition software. While efforts are made to proofread this document, sound alike and grammatical errors may occur. Departure - Departure Disposition: 01 Home, Self Care Clinical Impression: Enteritis UTI (urinary tract infection) Qualifiers: Urinary tract infection type: acute cystitis Hematuria presence: without hematuria Qualified Code(s): N30.00 - Acute cystitis without hematuria Condition: Good Instructions: ED UTI Cystitis Female, ED Gastroenteritis Viral Follow-Up: Avis Prakash MD [Primary Care Provider] - Prescriptions: Dicyclomine [Bentyl] 10 mg PO QID PRN #30 cap PRN Reason: Abdominal Pain cephALEXin [Keflex] 500 mg PO Q6H #20 cap HYDROcod/ACETAM 5/325 [[place] 5/325] 1 - 2 ea PO Q6H PRN #10 tablet PRN Reason: Pain Ondansetron Odt [Zofran] 4 mg TL Q6H PRN #10 tablet PRN Reason: Nausea / Vomiting Comments: Your prescriptions were sent to [facility] in [place]. Please follow-up with your doctor for further care. Please return if you worsen. Please take all antibiotics until gone. As we discussed your CT scan shows an enteritis, this is usually a viral infection that causes inflammation of the intestines. If you fail to improve as expected or worsening, please return for repeat evaluation. You were treated for a bladder infection tonight as well. The remainder of your prescription was sent to the pharmacy. There was also a hypervascular lesion on your liver dome. This is indeterminate, your doctor can order an MRI as an outpatient for further c haracterization. I am prescribing a short course of narcotic pain medication for you. These are potentially dangerous and addictive medications that should be used carefully. These medications may constipate you. Take an [id number] stool softener (docusate) twice daily with plenty of water while taking these medications. If you go 24 hours without a bowel movement, take [id number] miralax, per package instructions. Do not drink or drive while taking these medications. If you received narcotic or sedating medications while in the emergency department, do not drive for 24 hours. Store this medication in a safe, secure place and out of reach of children. It is a violation of federal law to give or sell this medication to another person or to use in a manner other than prescribed. The ED will not refill narcotic prescriptions, including prescriptions lost or stolen. To dispose of unwanted medications: 1. [facility] at [address] in [place] has a medication drop box. They accept prescription medications (in pill form) Monday through Monday 9:00 a.m. to 5:00 p.m. 2. [facility] accepts prescription medications (in pill form only) for disposal year round. Call for more information. 3. Contact the [facility] for the next [facility] sponsored prescription drug collection event. , [phone], or [phone]; EXAM: [id number] CT/ABPEW ([id number]) PROCEDURE: Abdomen/Pelvis W INDICATIONS: diffuse abd pain CONTRAST: 100ml [id number] TECHNIQUE: After the administration of intravenous contrast, a CT scan of the abdomen and pelvis was performed. Images were recorded and evaluated at appropriate window settings. Reformats: coronal and sagittal. For radiation dose reduction, the following was used: automated exposure control, adjustment of mA and/or kV according to patient size. COMPARISON: 12/17/2022 FINDINGS: Image quality: Diagnostic. Lower chest: Unremarkable. Liver: 1.6 cm hyperattenuating lesion at the liver dome, previously 1.4 cm (series 2, image 16). Gallbladder: No radiopaque stones or wall thickening. Biliary tree: No intrahepatic or extrahepatic dilation, accounting for age. Spleen: No splenomegaly. Pancreas: No pancreatic ductal dilation. Adrenals: No adrenal nodule. Kidneys and ureters: No hydronephrosis. No renal cystic lesion which requires follow up. No solid mass. Stomach, bowel and peritoneum: No gastric or small bowel dilation. No abnormal wall thickening. Small volume ascites. Prominent enhancement of the small bowel, with engorgement of the vasa recta. Lymph nodes: No central or retroperitoneal adenopathy. Vessels: No infrarenal aortic aneurysm. Patent portal vein. PELVIS Reproductive organs: Hysterectomy. Bladder: No abnormal wall thickening, accounting for underdistention. Pelvic lymph nodes: No pelvic adenopathy by size criteria. Bones: No aggressive osseous abnormality. Degenerative changes of the spine. Grade 1 retrolisthesis of L3 on L4. Opposing endplate sclerosis at L2-3, L1-2. Other: No significant ventral or inguinal hernia. IMPRESSION: Prominent enhancement of the small bowel, with engorgement of the vasa recti and small volume ascites. Findings suggest enteritis. Slight interval growth of the hypervascular lesion at the liver dome. Finding is indeterminate in the setting of malignancy. Consider outpatient MRI for complete characterization Forms: PCP List Discharge Date/Time: 01/15/24 22:54
[2024-01-15 20:07] LABS: ALBUMIN 4.5 g/dL (3.2-5.5); ALBUMIN/GLOBULIN RATIO 1.5 (1.0-2.2); BILIRUBIN,TOTAL 0.5 mg/dL (0.2-1.0); CALCIUM 9.9 mg/dL (8.5-10.3); CREATININE 0.6 mg/dL (0.6-1.3); POTASSIUM 3.7 mmol/L (3.5-4.5); TOTAL PROTEIN 7.6 g/dL (6.4-8.9)
[2024-01-15] MEDS ORDERED: iohexoL-300 100 ML VIAL ONE (20:09)
[2024-01-15] MEDS: HYDROmorphone 1 MG/ML CARPUJECT IVP STA (20:28)
--- NOTE | 2024-01-15 20:57 | XRAY Report ---
PROCEDURE: Chest 1V INDICATIONS: chest pain TECHNIQUE: One view of the chest was acquired. COMPARISON: 01/25/2022 FINDINGS: Surgical changes and devices: None. Lungs and pleura: No pleural effusions or pneumothorax. Lungs are clear. Mediastinum: Mediastinal contours appear normal. Heart size is normal. Bones and chest wall: No suspicious bony lesions. Overlying soft tissues appear unremarkable. IMPRESSION: No acute cardiopulmonary process. Reviewed by: Jac Lopez MD on 01/15/2024 8:55 PM PDT Approved by: Jac Lopez MD on 01/15/2024 8:55 PM PDT Station ID: [id number]
[2024-01-15] MEDS: iohexoL-300 100 ML VIAL IVP ONE (21:04)
[2024-01-15] MEDS: LORazepam 2 MG/ML VIAL IVP STA (21:14)
[2024-01-15] MEDS: KETOROLAC 30 MG/ML VIAL IVP STA (21:14)
[2024-01-15] MEDS: ONDANSETRON 4 MG/2 ML VIAL IVP STA (21:15)
--- NOTE | 2024-01-15 21:15 | CT Report ---
PROCEDURE: Abdomen/Pelvis W INDICATIONS: diffuse abd pain CONTRAST: 100ml [id number] TECHNIQUE: After the administration of intravenous contrast, a CT scan of the abdomen and pelvis was performed. Images were recorded and evaluated at appropriate window settings. Reformats: coronal and sagittal. F or radiation dose reduction, the following was used: automated exposure control, adjustment of mA and /or kV according to patient size. COMPARISON: 12/17/2022 FINDINGS: Image quality: Diagnostic. Lower chest: Unremarkable. Liver: 1.6 cm hyperattenuating lesion at the liver dome, previously 1.4 cm (series 2, image 16). Gallbladder: No radiopaque stones or wall thickening. Biliary tree: No intrahepatic or extrahepatic dilation, accounting for age. Spleen: No splenomegaly. Pancreas: No pancreatic ductal dilation. Adrenals: No adrenal nodule. Kidneys and ureters: No hydronephrosis. No renal cystic lesion which requires follow up. No solid mas s. Stomach, bowel and peritoneum: No gastric or small bowel dilation. No abnormal wall thickening. Small volume ascites. Prominent enhancement of the small bowel, with engorgement of the vasa recta. Lymph nodes: No central or retroperitoneal adenopathy. Vessels: No infrarenal aortic aneurysm. Patent portal vein. PELVIS Reproductive organs: Hysterectomy. Bladder: No abnormal wall thickening, accounting for underdistention. Pelvic lymph nodes: No pelvic adenopathy by size criteria. Bones: No aggressive osseous abnormality. Degenerative changes of the spine. Grade 1 retrolisthesis o f L3 on L4. Opposing endplate sclerosis at L2-3, L1-2. Other: No significant ventral or inguinal hernia. IMPRESSION: Prominent enhancement of the small bowel, with engorgement of the vasa recti and small volume ascites . Findings suggest enteritis. Slight interval growth of the hypervascular lesion at the liver dome. Finding is indeterminate in the setting of malignancy. Consider outpatient MRI for complete characterization. Reviewed by: Jac Lopez MD on 01/15/2024 9:14 PM PDT Approved by: Jac Lopez MD on 01/15/2024 9:14 PM PDT Station ID: [id number]
[2024-01-15 21:18] LABS: BILIRUBIN,URINE NEGATIVE (NEGATIVE); GLUCOSE, URINE (UA) NEGATIVE (NEGATIVE); KETONES,URINE (UA) TRACE mg/dL (NEGATIVE); LEUKOCYTE ESTERASE, URINE SMALL (NEGATIVE); NITRITE,URINE NEGATIVE (NEGATIVE); OCCULT BLOOD,URINE NEGATIVE (NEGATIVE); PH,URINE 8.5 PH (5.0-7.5); PROTEIN,URINE TRACE mg/dL (NEGATIVE); UROBILINOGEN,URINE 0.2 (NORMAL) E.U./dL (NORMAL)
[2024-01-15 21:19] LABS: CLARITY,URINE CLEAR (CLEAR)
[2024-01-15] MEDS: DICYCLOMINE 10 MG CAPSULE PO STA (21:34)
[2024-01-15 21:40] LABS: BACTERIA,URINE Rare /HPF (None Seen); RBC,URINE 0-5 /HPF (0-5); SQUAMOUS EPITHELIAL CELL,UR RARE Squamous (<= Few); WBC,URINE >25 /HPF (0-5)
[2024-01-15 21:46] VITALS: BP 139/69; O2SAT 96
[2024-01-15] MEDS: cefTRIAXone 1 GM VIAL IVP STA (22:06)
[2024-01-15] MEDS: ONDANSETRON ODT 4 MG Prepack 2 TL PRN (22:51)
[2024-01-15] MEDS: HYDROcod/ACET 5/325 Prepack 4 PO STA (22:51)
== END 2024-01-15 22:54 | disposition home or self-care (01) ==
LOC: ED 19:15
DX: K52.9 Noninfective gastroenteritis and colitis, unspecified (principal); N30.00 Acute cystitis without hematuria
CPT/HCPCS: 36415; 71045; 74177; 80053; 81001; 83690; 84484; 85025; 87086; 96374; 96375; 99285; A9270; J1170; J2060; Q9967; 81003